=== PATIENT | female | born 1955 | race Caucasian/White ===

== ENCOUNTER 2023-04-19 10:06 | Inpatient (IN) | payer MEDICARE ==
[~2023-04-19] VITALS: Ht 160 cm; Wt 80.5 kg
[2023-04-19 11:15] LABS: Source, Urine Clean Catch
[2023-04-19 11:32] LABS: BASOPHILS ABSOLUTE AUTO 0.03 K/mm3 (0.00-0.23); BASOPHILS PERCENT AUTO 0 % (0-2); EOSINOPHILS PERCENT AUTO 0 % (0-6); Hematocrit 39.9 % (33.0-51.0); Hemoglobin 13.4 g/dL (11.5-16.0); IMMATURE GRAN ABSOLUTE AUTO 0.04 K/mm3 (0.00-0.10); IMMATURE GRAN PERCENT AUTO 0 % (0-1); LYMPHOCYTES ABSOLUTE AUTO 0.59 K/mm3 (0.84-5.20); LYMPHOCYTES PERCENT AUTO 5 % (21-46); MONOCYTES ABSOLUTE AUTO 0.83 K/mm3 (0.16-1.47); MONOCYTES PERCENT AUTO 6 % (4-13); Mean Corpuscular HGB 30.2 pg (26.0-34.0); Mean Corpuscular HGB Conc 33.6 g/dL (31.5-36.5); Mean Corpuscular Volume 90 fL (80-100); Mean Platelet Volume 11.4 fL (9.1-12.4); NEUTROPHILS ABSOLUTE AUTO 11.51 K/mm3 (1.96-9.15); NEUTROPHILS PERCENT AUTO 89 % (41-73); Platelet Count 201 K/mm3 (150-400); RDW Coefficient Variation 14.1 % (11.7-14.2); RDW Standard Deviation 46.4 fL (35.1-46.3); Red Blood Cell Count 4.43 M/mm3 (3.80-5.20)
[2023-04-19 11:35] LABS: Appearance, Urine Hazy (Clear); Bilirubin, Urine Neg (Neg); Blood, Urine 5+ (Neg); Color, Urine Amber (P-Yellow); Glucose Qualitative, Urine Neg (Neg); Ketones, Urine 3+ (Neg); Leukocyte Esterase, Urine 1+ (Neg); Nitrite, Urine Neg (Neg); Protein, Urine 3+ (Neg); Specific Gravity, Urine 1.025 (1.003-1.022); Urobilinogen, Urine 1+ (Normal)
[2023-04-19 11:49] LABS: Albumin, Blood 3.3 g/dL (3.4-5.0); Albumin/Globulin Ratio 0.7 (0.8-1.8); Bun/Creatinine Ratio 12.5 (12.0-20.0); Calcium, Blood 8.7 mg/dL (8.5-10.1); Creatinine, Blood 0.64 mg/dL (0.40-1.00); Globulin, Blood 4.8 g/dL (2.2-4.0); Potassium, Blood 3.6 mmol/L (3.5-5.5); Total Protein, Blood 8.1 g/dL (6.4-8.2)
[2023-04-19 12:02] LABS: Amorphous Light (0-Heavy); Bacteria Few /hpf; Mucus Light (0-Heavy); Red Blood Cells, Urine 25-50 /hpf (0-2); Squamous Epithelial Cells Few /hpf (Few)
[2023-04-19 12:24] LABS: Base Excess Venous -0.5 mmol/L; Bicarbonate Venous 23.9 mmol/L (24.0-30.0)
[2023-04-19 13:30] LABS: Influenza A, PCR NEGATIVE (NEGATIVE); Influenza B, PCR NEGATIVE (NEGATIVE); Resp Syncytial Virus, PCR NEGATIVE (NEGATIVE); SARS-Cov-2 (COVID-19) PCR, MMC NEGATIVE (NEGATIVE)
[2023-04-19 16:50] VITALS: BP 133/60
--- NOTE | 2023-04-19 18:01 | NUR ---
PT ARRIVED TO ROOM AT 1630 AOX4 AND COOPERATIVE OF CARE. PT ABLE TO TRANSFER TO BED ON HER OWN.PT WAS HAS BEEN NOTIFIED OF THE HAZARDS OF IGNITION SOURCES AND RISK OF INJURY IF ANY O2 IS EVERY IN USE DURING ALL HOURLY ROUNDINGS. PT VERBALIZED UNDERSTANGING.
--- NOTE | 2023-04-19 19:26 | NUR ---
PT HAD FEVER SPIKE OF 103.5 AND EMESIS. PT TREATED FOR EMESIS AND FEVER PER EMAR. NIGHT RN INFORMED OF SPIKE. PT WILL CONTINUE TO BE MONITORED.
[2023-04-19 19:49] VITALS: BP 124/85
--- NOTE | 2023-04-20 04:38 | NUR ---
SHIFT SUMMERY. PT FEVER HAD GOVNE DOWN AND PT NOT HAVING N/V AT THIS TIME. PT HAD A HORVATH EARLYER AND WAS GIVEN TYLENOL FOR IT. PT SLEEPING INTERMITANTLY DURING NIGHT. PT VU ABOUT NOT HAVING ANY IGNITIN DEVAICES IN ROOM WITH O2. PT DOSE NOT SMOKE OR HAVE O2 ON AT THIS TIME. CALL LIGHT IN REACH.
[2023-04-20 04:49] VITALS: BP 132/68
[2023-04-20 05:42] LABS: Hematocrit 34.7 % (33.0-51.0); Hemoglobin 11.9 g/dL (11.5-16.0); Mean Corpuscular HGB 30.5 pg (26.0-34.0); Mean Corpuscular HGB Conc 34.3 g/dL (31.5-36.5); Mean Corpuscular Volume 89 fL (80-100); Mean Platelet Volume 11.6 fL (9.1-12.4); Platelet Count 153 K/mm3 (150-400); RDW Coefficient Variation 14.3 % (11.7-14.2); RDW Standard Deviation 46.7 fL (35.1-46.3); White Blood Cell Count 10.89 K/mm3 (4.00-11.30)
[2023-04-20 06:17] LABS: Bun/Creatinine Ratio 14.9 (12.0-20.0); Calcium, Blood 7.5 mg/dL (8.5-10.1); Creatinine, Blood 0.54 mg/dL (0.40-1.00)
[2023-04-20 07:23] VITALS: BP 133/66
[2023-04-20 15:08] VITALS: BP 109/70
--- NOTE | 2023-04-20 16:15 | NUR ---
PT HAS HAD NO ACUTE CHANGES. AOX4 AND COOPERATIVE OF CARE. PT CONTINUES TO HAVE FEVER SPIKES AND IS TREATED FOR THIS AND NAUSEA PER EMAR. PT IS A STANDBY TO RESTROOM. ABLE TO MAKE ALL NEEDS KNOWN AND USES CALL LIGHT APPROPRIATELY. PT EDUCATED DURING HOURLY ROUNDIN ON INGNITION ITEMS AND THE RISK OF BODILY INJURY IF USED IN ROOMS WITH O2. PT VERBALIZED UNDERSTANDING. WILL CONTINUE TO MONITOR.
[2023-04-20 19:31] VITALS: BP 113/62
--- NOTE | 2023-04-21 03:07 | NUR ---
SHIFT SUMMERY, PT HAD C/O A HORVATH AND WAS GIVEN TYLENOL PT HAD HORVATH DURRING DAYS AND LAST NOC. TOLD PT IF SHE WASTED TORIDOL WAS DUE AGAIN AT 0030 PT APPEARS TO BE ASLEEP. CALL LIGHT IN REACH
[2023-04-21 05:04] VITALS: BP 134/76
[2023-04-21 05:05] LABS: Hematocrit 32.8 % (33.0-51.0); Hemoglobin 11.1 g/dL (11.5-16.0); Mean Corpuscular HGB 29.8 pg (26.0-34.0); Mean Corpuscular HGB Conc 33.8 g/dL (31.5-36.5); Mean Corpuscular Volume 88 fL (80-100); Mean Platelet Volume 11.9 fL (9.1-12.4); Platelet Count 176 K/mm3 (150-400); RDW Coefficient Variation 14.3 % (11.7-14.2); RDW Standard Deviation 45.8 fL (35.1-46.3); Red Blood Cell Count 3.72 M/mm3 (3.80-5.20); White Blood Cell Count 10.23 K/mm3 (4.00-11.30)
--- NOTE | 2023-04-21 05:39 | NUR ---
PT REDUCATED ABOUT FIRE SAFETY WITH O2 PT ON RA VU NOT TO HAVE SUPERVISOR COOK ROOM OR OTHER ITEMS THAT MIGHT IGNIGHT O2.
[2023-04-21 05:56] LABS: Albumin, Blood 2.3 g/dL (3.4-5.0); Albumin/Globulin Ratio 0.6 (0.8-1.8); Bilirubin, Total 0.6 mg/dL (0.1-1.0); Bun/Creatinine Ratio 14.9 (12.0-20.0); Calcium, Blood 7.5 mg/dL (8.5-10.1); Creatinine, Blood 0.54 mg/dL (0.40-1.00); Globulin, Blood 3.9 g/dL (2.2-4.0); Potassium, Blood 3.6 mmol/L (3.5-5.5); Total Protein, Blood 6.2 g/dL (6.4-8.2)
[2023-04-21 07:11] VITALS: BP 123/77
[2023-04-21] MEDS ORDERED: EXTRA PAIN REL1 EAC2 PO (15:21)
[2023-04-21] MEDS ORDERED: TUSSIN MUC100 MG/5 M PO (15:21)
[2023-04-21] MEDS ORDERED: OMEP20ER PO (15:22)
[2023-04-21] MEDS ORDERED: VISBIOME 112.51 EACH PO (15:22)
[2023-04-21] MEDS ORDERED: AMOCLA875 PO (15:22)
[2023-04-21] MEDS ORDERED: GUAI600T33 PO (15:22)
--- NOTE | 2023-04-21 16:31 | NUR ---
PT LEFT UNIT VIA WHEELCHAIR. IV REMOVED. DISCHARGE INSTRUCTIONS REVIEWED. MEDICATIONS FAXED TO [facility].
== END 2023-04-21 16:28 | disposition home or self-care (01) | DRG 871 ==
LOC: ER 10:06 → MEDS 16:12
PROVIDERS: Emergency Medicine; ADMIT Internal Medicine
DX: A41.9 Sepsis, unspecified organism (principal); J18.9 Pneumonia, unspecified organism; E87.1 Hypo-osmolality and hyponatremia; R79.89 Other specified abnormal findings of blood chemistry; Z20.822 Contact with and (suspected) exposure to COVID-19
CPT/HCPCS: 0241U; 36415; 71046; 80048; 80053; 81001; 82803; 83605; 85025; 85027; 87040; 87449; 96361; 96365; 96375; 99285-25; A9270; J0696; J1650; J1885; J2405; J7030